=== PATIENT | female | born 1955 | race Caucasian/White ===

== ENCOUNTER → 2016-09-09 | Outpatient (CLI) | payer BC ==
[2016-09-09 13:06] LABS: EKG EKG PERFORMED
[2016-09-09 13:28] LABS: Basophils # (A) 0.1 k/uL (0-0.2); Basophils % (A) 1 %; CH 31.3; CHCM 33.8; Eosinophils # (A) 0.1 k/uL (0-0.7); Eosinophils % (A) 1 %; HCT 39.2 % (34.0-46.0); HDW 2.43; HGB 13.1 gm/dL (11.4-16.0); Luc # (Auto) 0.22; Luc % (Auto) 3; Lymphocytes # (A) 2.2 k/uL (1.0-4.8); Lymphocytes % (A) 27 %; MCH 31.2 pg (25.0-35.0); MCHC 33.6 g/dL (31.0-37.0); Mean Platelet Volume 7.5; Monocytes # (A) 0.6 k/uL (0-1.0); Monocytes % (A) 8 %; Neutrophils # (A) 4.9 k/uL (1.3-7.7); Neutrophils % (A) 61 %; RBC 4.21 m/uL (3.80-5.40); RDW 12.9 % (11.5-15.5); WBC (Perox) 8.05
[2016-09-09 13:33] LABS: Appearance,Urine Clear (Clear); Bilirubin,Urine Negative (Negative); Glucose,Urine (UA) Negative (Negative); Ketones,Urine Negative (Negative); Leukocyte Esterase,Urine Negative (Negative); Nitrite,Urine Negative (Negative); Protein,Urine Negative (Negative); Specific Gravity,Urine 1.015 (1.001-1.035); UA Billing (MACRO vs. MICRO) CHEM; Urobilinogen,Urine <2.0 mg/dL (<2.0)
[2016-09-09 13:44] LABS: ALT 24 U/L (9-52); AST 21 U/L (14-36); Alkaline Phosphatase 92 U/L (38-126); Anion Gap 10 mmol/L; Blood Urea Nitrogen 14 mg/dL (7-17); Calcium 9.5 mg/dL (8.4-10.2); Carbon Dioxide 27 mmol/L (22-30); Chloride 103 mmol/L (98-107); Glucose 93 mg/dL (74-99); Non-African American GFR(MDRD) >60 (>60 ml/min/1.73 sqM); Potassium 4.1 mmol/L (3.5-5.1); Sodium 140 mmol/L (137-145); Total Bilirubin 0.6 mg/dL (0.2-1.3); Total Protein 7.2 g/dL (6.3-8.2)
[2016-09-09 13:56] LABS: INR 1.1 (<1.1); Partial Thromboplastin Time 22.4 sec (22.0-30.0); Prothrombin Time 10.8 sec (9.0-12.0)
== END ==
LOC: LABPAT 12:46
PROVIDERS: ATTEND Orthopaedic Surgery
DX: Z01.812 Encounter for preprocedural laboratory examination (principal); Z51.81 Encounter for therapeutic drug level monitoring; Z79.01 Long term (current) use of anticoagulants
CPT/HCPCS: 80053; 81003; 85025; 85610; 85730; 87070; 93005

== ENCOUNTER 2016-09-23 07:30 | Inpatient (IN) | payer BC ==
[2016-09-10 16:05] VITALS: BMI 37.4
[~2016-09-23 07:30] MED LIST: ACETAMINOPHEN TAB 500 MG TAB PO ONE; CLINDAMYCIN 900 MG in DEXTROSE 5% IN WATER 50 ML IVPB ONE; DEXAMETHASONE SOD PHOSPHATE 10 MG/ML 1 ML VIAL IV ONE; HYDROmorphone 1 MG/ML 1 ML SYRINGE IVP PRN; LACTATED RINGERS 1,000 ML IV SCH; MELOXICAM 7.5 MG TAB PO ONE; MIDAZOLAM 2 MG/2 ML VIAL IV PRN; ONDANSETRON 4 MG/2 ML VIAL IVP ONE; TRANEXAMIC ACID 1,000 MG in SODIUM CHLORIDE 0.9% 100 ML IVPB ONE
[2016-09-23] MEDS ORDERED: ROPIVACAINE 246.25 MG, EPINEPHrine 0.5 MG, KETOROLAC 30 MG, cloNIDine HCL/PF 80 MCG, WA... MISCELLANE ONE ×5 (09:01)
[2016-09-23] MEDS ORDERED: LIDOCAINE 1% 20 ML VIAL (10MG/ML) FOR IV START INTRADERMA ONE (12:55)
[2016-09-23] MEDS ORDERED: ROCURONIUM BROMIDE 10 MG/ML 10 ML VIAL IV ONE (14:07)
[2016-09-23] MEDS ORDERED: fentaNYL (PF) 50 MCG/ML 2 ML AMP ONE (14:07)
[2016-09-23] MEDS ORDERED: SODIUM CHLORIDE 0.9% 100 ML BAG ONE (14:07)
[2016-09-23] MEDS ORDERED: TRANEXAMIC ACID 1,000 MG/10 ML VIAL ONE (14:07)
[2016-09-23] MEDS ORDERED: MIDAZOLAM 2 MG/2 ML VIAL ONE (14:07)
[2016-09-23] MEDS ORDERED: PROPOFOL 10 MG/ML 20 ML VIAL IV ONE (14:07)
[2016-09-23] MEDS ORDERED: ceFAZolin 3,000 MG in SODIUM CHLORIDE 0.9% IRRIGATIO 3,000 ML IRRIGATION ONE (14:07)
[2016-09-23] MEDS ORDERED: HYDROmorphone (PF) 1 MG/ML ONE (14:07)
[2016-09-23] MEDS ORDERED: GLYCOPYRROLATE 0.2 MG/ML 2 ML VIAL ONE (14:07)
[2016-09-23] MEDS ORDERED: NEOSTIGMINE 1 MG/ML 10 ML VIAL ONE (14:07)
[2016-09-23] MEDS ORDERED: LIDOCAINE 1% INJ 10MG/ML (20 ML MDV) ONE (14:07)
[2016-09-23] MEDS ORDERED: ROPIVACAINE 1,100 MG, SODIUM CHLORIDE 0.9% 330 ML MISCELLANE PRN ×2 (15:18)
--- NOTE | 2016-09-23 15:21 | P.ONQ ---
Anesthesiology Proc Note - PNB - Peripheral Nerve Block Performed Right Adductor Canal Infusion Time Out Performed: Yes Indication: Acute Post-Operative Pain, Requested by physician Sedation Type: Awake Preparation: Sterile Dressing Position: Supine Needle Types: Other (see comment) (pajunk needle) Needle Size: 100mm (4") Needle Gauge: 21 Technique: Ultrasound Injectate: 0.5% Ropivacaine (see comment for volume) (ropi.5%) Blood Aspirated: No Pain Paresthesia on Injection Noted: No Resistance on Injection: Normal Events: Uneventful and Well Tolerated
[2016-09-23] MEDS ORDERED: LACTATED RINGERS 1,000 ML IV ONE (15:29)
--- NOTE | 2016-09-23 15:30 | P.OP ---
Date of Procedure: 09/23/16 Preoperative Diagnosis: Severe osteoarthritis right knee Postoperative Diagnosis: Severe osteoarthritis right knee Procedure(s) Performed: Right total knee arthroplasty Implants: Mckinley and Nephew Oxinium femoral component size 5, right Mckinley & Nephew Mili II right nonporous tibial baseplate size 4 Mckinley [employer] Nephew size 13 mm Legion XLPE dished articular insert, size 3-4 Mckinley [employer] Nephew Mili II resurfacing patellar component, 32 mm All components were cemented using Rebekah bone cement.. The articulation is ceramic on polyethylene. Anesthesia: spinal Surgeon: Rogelio Hughes Associate Professor Of Law #1: Brisa Duran Estimated Blood Loss (ml): 50 Pathology: other (Bone and cartilage) Condition: stable Disposition: PACU Indications for Procedure: After failure of conservative treatment we discussed the surgical and nonsurgical treatment options at length. Patient wishes to proceed with a total knee arthroplasty. Complications specific to this procedure were discussed at length, including but not limited to infection, bleeding, stiffness , and nerve injury. Patient is aware of all these complications and informed consent was obtained Operative Findings: The operative findings are consistent with severe osteoarthritis of the right knee Description of Procedure: Patient was seen in the preoperative area consent was reviewed and operative site was marked with a skin marker. An adductor canal pain catheter was placed by anesthesia in the preoperative area. Patient was then brought to the operating room and given preoperative antibiotics intravenously. A spinal anesthetic was administered by the anesthesia department. A Shirley catheter was then placed by the nursing staff. A tourniquet was placed on the upper thigh and the lower extremity was prepped and draped in usual sterile fashion. A gram of transexamic acid was given. A universal timeout was then performed which confirmed the patient's name, surgical site, ALLERGIES, and consent. The lower extremity was then exsanguinated and tourniquet was inflated to 250 mmHg. A standard and anterior midline approach to the knee was performed. The skin and subcutaneous tissue was dissected down to the patellar tendon. A medial parapatellar arthrotomy was then performed. The knee was then extended, the patellar was everted, and the knee was again flexed. Anterior horns of both menisci were excised, and a release was performed to the posterior medial aspect of the knee. On gross visual inspection, there was complete loss of articular cartilage in the medial and patellofemoral joint spaces. There was also significant cartilage damage in the lateral compartment. There were multiple periarticular osteophytes which were then removed with a Ronguer. The femoral canal was then opened with the appropriate drill, and the intramedullary femoral cutting guide was then placed and set for 4 of valgus. The distal femoral cutting block was then pinned in place, and the distal femur was then cut. The cutting block was then removed and the cut was checked for flatness. Next, the sizing guide was then placed and set for 3 external rotation based off of the epicondylar axis and Whitesides line. After the femur was sized, the appropriate 4-in-1 cutting block was then pinned in place. The anterior condyles were cut without notching. The posterior and chamfer cuts were performed while protecting the collateral ligaments. The cutting block was then removed, and the femoral canal was plugged with autologous bone. Attention was then directed to the tibia. The remaining ACL was removed with a Ronguer, and the tibia was then gently subluxed forward with a large bent knee retractor. Any remaining menisci was excised. The posterior lateral corner was cauterized in order to cauterize the lateral geniculate artery. The extra medullary tibial cutting guide was then placed, set for the appropriate rotation , slope, and depth of resection. The proximal tibia cutting guide was then pinned in place. Proximal tibia was then cut and sized. Next trials were then placed with the appropriate-sized insert. The knee was able to fully extend and flex to 130 and was stable throughout all range of motion. The knee was then extended, patella everted. Patella was then measured, and then using an osteotomy guide, the patella was cut at the appropriate level. The patella was then measured and drilled and the patella trial was then placed. The knee was then taken through range of motion with the patella trial and the patella tracked normally. The knee was then extended patella trial was then removed and the patella was everted. Knee was then flexed and lug holes were drilled through the femoral trial and the femoral trial was then removed. The tibial was then exposed, and the tibial broach guide was then pinned in place after it was set for the appropriate rotation to allow for the most coverage without overhang. The tibia was then reamed and broached. The cut surfaces of bone were then irrigated with pulsatile lavage. The posterior structures were injected with the ropivacaine solution. The knee was also irrigated with Irrisept solution. The components were then opened, the cement was mixed, and the components were then cemented in place. The cement was allowed to harden with the knee in full extension. While the cement was hardening, the remaining soft tissues were then injected with a ropivacaine solution, which consisted of 246.25 mg of ropivacaine, 0.5 mg of epinephrine, 30 mg of Toradol, 80 g of clonidine, and 48.45 mL of sterile water, for a total of 100 mL of fluid injected. After the cemented hardened. The tourniquet was released, and hemostasis was obtained. A second gram of transexamic acid was given. The knee was again irrigated. The knee was again taken through range of motion and found to be stable throughout all range of motion of 0-130 , and the patella tracked normally. The fascia was then closed with #2 strata fix suture. The subcutaneous tissue was closed with 3-0 Vicryl and 3-0 strata fix. Dermabond tape was used for the skin and placed with the knee in flexion. The patient was placed in a sterile dressing. Patient was then transferred to recovery room in stable condition. The clinical assistant professor ANJUM Zee was required due the complexity surgery and the need for a skilled operating room surgical technician. She assisted in positioning, draping , retraction, and closure of the wound.
[2016-09-23] MEDS ORDERED: NALOXONE 0.4 MG/ML 1 ML VIAL IV PRN (15:51)
[2016-09-23] MEDS ORDERED: MAGNESIUM HYDROXIDE 2,400 MG/10 ML CUP PO PRN (15:51)
[2016-09-23] MEDS ORDERED: BISACODYL 10 MG SUPP RECTAL PRN (15:51)
[2016-09-23] MEDS ORDERED: DIAZEPAM 5 MG TAB PO PRN ×2 (15:51)
[2016-09-23] MEDS ORDERED: HYDROmorphone 1 MG/ML 1 ML SYRINGE IVP PRN ×2 (15:51)
[2016-09-23] MEDS ORDERED: HYDROcodone/APAP 5-325MG 1 EACH TAB PO PRN (15:51)
--- NOTE | 2016-09-23 16:21 | XR ---
EXAMINATION TYPE: XR knee limited RT DATE OF EXAM: 09/23/2016 4:16 PM COMPARISON: NONE HISTORY: Post knee replacement TECHNIQUE: 2 view right knee FINDINGS: Tibial and femoral components have been placed. Postsurgical changes are present. No acute fractures are evident. IMPRESSION: 1. No fracture post knee replacement
[2016-09-23] MEDS: ONDANSETRON 4 MG/2 ML VIAL IVP PRN (18:32)
[2016-09-23] MEDS: CLINDAMYCIN 900 MG in DEXTROSE 5% IN WATER 50 ML IVPB SCH ×2 (20:03)
[2016-09-23] MEDS: SODIUM CHLORIDE 0.9% 1,000 ML IV SCH (20:04)
[2016-09-23] MEDS: SENNOSIDES-DOCUSATE SODIUM 1 EACH TAB PO SCH (21:49)
[2016-09-23] MEDS: ASPIRIN 325 MG TAB PO SCH (21:49)
[2016-09-23] MEDS: HYDROcodone/APAP 5-325MG 1 EACH TAB PO PRN (21:52)
[2016-09-24] MEDS: CLINDAMYCIN 900 MG in DEXTROSE 5% IN WATER 50 ML IVPB SCH ×2 (01:08)
[2016-09-24] MEDS: SODIUM CHLORIDE 0.9% 1,000 ML IV SCH ×2 (03:59→05:00)
[2016-09-24] MEDS: HYDROcodone/APAP 5-325MG 1 EACH TAB PO PRN ×3 (05:02→22:15)
[2016-09-24 07:33] LABS: Basophils % (A) 0 %; CH 31.1; CHCM 32.6; Eosinophils % (A) 0 %; HCT 34.1 % (34.0-46.0); HDW 2.35; HGB 10.9 gm/dL (11.4-16.0); Luc # (Auto) 0.23; Luc % (Auto) 2; Lymphocytes % (A) 8 %; MCH 30.7 pg (25.0-35.0); MCV 95.9 fL (80.0-100.0); Mean Platelet Volume 7.3; Monocytes # (A) 0.8 k/uL (0-1.0); Monocytes % (A) 7 %; Neutrophils % (A) 83 %; RBC 3.56 m/uL (3.80-5.40); RDW 12.9 % (11.5-15.5); WBC 12.1 k/uL (3.8-10.6)
--- NOTE | 2016-09-24 08:15 | P.PN ---
Subjective Principal diagnosis: Status post right total knee arthroplasty This is a pleasant 61-year-old female who is status post right total knee arthroplasty. The patient is seen and evaluated at bedside with Dr. Rogelio Hughes. Today's postoperative day #1. The patient has not yet been up with physical therapy. Her pain is under fair control. She has no other complaints at this time. Objective - Vital Signs Vital signs: Vital Signs Temp 97.7 F 09/24/16 06:02 Pulse 56 L 09/24/16 06:02 Resp 16 09/24/16 00:15 BP 99/58 09/24/16 06:02 Pulse Ox 98 09/24/16 06:02 Intake & Output 09/23/16 09/24/16 09/24/16 18:59 06:59 18:59 Intake Total 1457 1000 Output Total 100 700 Balance 1357 1000 -700 Intake: IV 1457 1000 Clindamycin 900 mg In 100 Dextrose 5% in Water 50 ml @ 100 mls/hr IVPB Q6H [facility] Rx#:[id number] Sodium Chloride 0.9% 1, 900 000 ml @ 100 mls/hr IV . Q10H [facility] Rx#:[id number] Output: Urine 75 700 Uretheral (Shirley) 700 Estimated Blood Loss 25 - Exam The patient does not appear in acute distress. Alert and orientated 3. Dressing is clean dry and intact. Incision appears fine with no erythema or active drainage. Calf is soft and nontender. Good foot and ankle motion without difficulty. Sensation and circulatory status is intact. - Labs CBC & Chem 7: 09/24/16 07:11 Labs: Abnormal Lab Results - Last 24 Hours (Table) 09/24/16 Range/Units 07:11 WBC 12.1 H (3.8-10.6) k/uL RBC 3.56 L (3.80-5.40) m/uL Hgb 10.9 L (11.4-16.0) gm/dL Neutrophils # 10.0 H (1.3-7.7) k/uL Assessment and Plan (1) Primary osteoarthritis of right knee Status: Acute (2) Status post right knee replacement Status: Acute Plan: 1. Continue with routine postoperative care. 2. Anticoagulation with aspirin. 3. Physical therapy and CPM today. 4. Appreciate input from medicine. 5. Anticipate discharge to rehab likely on Thursday
[2016-09-24] MEDS: ASPIRIN 325 MG TAB PO SCH ×2 (08:50→22:00)
[2016-09-24] MEDS ORDERED: LORATADINE 10 MG TAB PO SCH (09:00)
[2016-09-24] MEDS ORDERED: LOSARTAN-HCTZ 50-12.5 MG 1 EACH TAB PO SCH (09:00)
--- NOTE | 2016-09-24 13:30 | XR ---
EXAMINATION TYPE: XR chest 2V DATE OF EXAM: 09/24/2016 1:15 PM COMPARISON: NONE HISTORY: Extended care facility placement. TECHNIQUE: Frontal and lateral views of the chest are obtained. FINDINGS: There is no focal air space opacity, pleural effusion, or pneumothorax seen. The cardiac silhouette size is within normal limits. The osseous structures are intact. IMPRESSION: No acute cardiopulmonary process.
--- NOTE | 2016-09-24 15:12 | P.CONS ---
History of Present Illness - Reason for Consult Consult date: 09/24/16 medical management - History of Present Illness this is a 61-year-old female patient of Dr. Osvaldo lord always with a past medical history for right-sided breast cancer status post right mastectomy , implant with ALLERGIC reaction to the implant subsequently removed, hypertension, osteoarthritis, MRSA in the foot.patient was brought in by Dr. Rogelio Hughes and underwent right total knee arthroplasty yesterday. She has had no postop complications. Chest x-ray shows no acute findings. She is planning for subacute rehab. She is complaining of pain at this time after getting up to wheelchair first chest x-ray. Patient was seen by cardiology prior to her procedure. Review of Systems All systems: negative Constitutional: Denies chills, Denies fever Eyes: denies blurred vision, denies pain Ears, nose, mouth and throat: Denies headache, Denies sore throat Cardiovascular: Denies chest pain, Denies shortness of breath Respiratory: Denies cough Gastrointestinal: Denies abdominal pain, Denies diarrhea, Denies nausea, Denies vomiting Genitourinary: Denies dysuria, Denies hematuria Musculoskeletal: Denies myalgias Musculoskeletal: right: knee pain Integumentary: Denies pruritus, Denies rash Neurological: Denies numbness, Denies weakness Psychiatric: Denies anxiety, Denies depression Endocrine: Denies fatigue, Denies weight change Past Medical History Past Medical History: Cancer, Hypertension, Osteoarthritis (OA) Additional Past Medical History / Comment(s): hx. right-sided breast cancer 2008 History of Any Multi-Drug Resistant Organisms: MRSA Year Discovered:: foot MDRO Source:: 2006 Past Surgical History: Breast Surgery, Hysterectomy, Orthopedic Surgery Additional Past Surgical History / Comment(s): right mastectomy 2009, then implant, left breast reduction, implant removed 2014due to ALLERGIC reaction, bilateral bunionectomy and hammertoe repair, arthroscopy right knee Past Anesthesia/Blood Transfusion Reactions: No Reported Reaction Past Psychological History: No Psychological Hx Reported Smoking Status: Never smoker Past Alcohol Use History: Rare Additional Past Alcohol Use History / Comment(s): she is a lifelong nonsmoker but she did have secondhand smoke exposure with her first . No marijuana or illicit drug use. No alcohol abuse. Past Drug Use History: None Reported - Past Family History Mother Family Medical History: No Reported History Additional Family Medical History / Comment(s): other in her 70s from heart failure with history of COPD. Father Family Medical History: Cancer Additional Family Medical History / Comment(s): father is alive at age 83 with history of CVA at age 23and was smoking 5 packs of cigarettes per day at that time, hypertension. Brother(s) Additional Family Medical History / Comment(s): Patient has 5 brothers and 2 have diabetes mellitus and all have hypertension. Sister(s) Additional Family Medical History / Comment(s): Patient has 3 sisters and all have hypertension. Son(s) Additional Family Medical History / Comment(s): Patient has 2 sons and 1 daughter with no major medical problems. Medications and Allergies Home Medications Medication Instructions Recorded Confirmed Type Cetirizine HCl [Zyrtec] 10 mg PO DAILY 09/10/16 09/23/16 History Losartan-Hctz 50-12.5 mg [Hyzaar 1 tab PO DAILY 09/10/16 09/23/16 History 50-12.5] Allergies Allergy/AdvReac Type Severity Reaction Status Date / Time cephalexin [From Keflex] Allergy Dyspnea Verified 09/10/16 15:53 erythromycin base Allergy Rash/Hives, Verified 09/10/16 15:53 itching ketorolac [From Toradol] Allergy Dyspnea Verified 09/10/16 15:53 silicone AdvReac Itching Verified 09/10/16 15:53 vancomycin AdvReac Itching,aneta Verified 09/10/16 15:53 h Physical Exam Vitals: Vital Signs Temp Pulse Resp BP Pulse Ox 09/24/16 06:02 97.7 F 56 L 99/58 98 09/24/16 00:15 98.2 F 68 16 124/76 96 09/23/16 18:45 67 136/76 09/23/16 18:30 69 119/78 09/23/16 18:15 75 159/82 09/23/16 18:00 75 130/66 09/23/16 17:45 79 138/80 09/23/16 17:30 97.3 F L 73 16 134/78 99 09/23/16 17:15 63 16 145/73 100 09/23/16 17:00 73 16 147/76 100 09/23/16 16:45 73 16 150/80 100 09/23/16 16:30 75 16 140/74 98 09/23/16 16:15 75 16 127/61 98 09/23/16 16:00 85 16 133/65 94 L 09/23/16 15:50 97.0 F L 94 16 146/68 100 Intake and Output 09/23/16 09/24/16 09/24/16 22:59 06:59 14:59 Intake Total 400 1000 500 Output Total 75 1100 Balance 325 1000 -600 Intake: IV 400 1000 Clindamycin 900 mg In 100 Dextrose 5% in Water 50 ml @ 100 mls/hr IVPB Q6H [facility] Rx#:[id number] Sodium Chloride 0.9% 1, 900 000 ml @ 100 mls/hr IV . Q10H [facility] Rx#:[id number] Oral 500 Output: Urine 75 1100 Uretheral (Shirley) 700 Other: # Voids 1 Gen: This is a 61-year-old female. She is sitting up in a chair and appears to be in no acute distress. HEENT: Head is atraumatic, normocephalic. Pupils equal, round. Sclerae is anicteric. NECK: Supple. No JVD. No lymphadenopathy. No thyromegaly. LUNGS: Clear to auscultation. No wheezes or rhonchi. No intercostal retractions. HEART: Regular rate and rhythm. No murmur. ABDOMEN: Soft. Bowel sounds are present. No masses. No tenderness. EXTREMITIES: No pedal edema. No calf tenderness. Dressing in place to the right knee. NEUROLOGICAL: Patient is awake, alert and oriented x3. Cranial nerves 2 through 12 are grossly intact. Results CBC & Chem 7: 09/24/16 07:11 Labs: Abnormal Lab Results - Last 24 Hours (Table) 09/24/16 Range/Units 07:11 WBC 12.1 H (3.8-10.6) k/uL RBC 3.56 L (3.80-5.40) m/uL Hgb 10.9 L (11.4-16.0) gm/dL Neutrophils # 10.0 H (1.3-7.7) k/uL Assessment and Plan Plan: 1. Osteoarthritis status post right total knee arthroplasty. Continue current plan of care by orthopedics. Patient is on full strength aspirin twice daily for DVT prophylaxis. Continue PT. Continue current pain management. 2. Hypertension. Patient's blood pressures have been on the low side. Hyzaar will be resumed with parameters. 3. History of right-sided breast cancer status post mastectomy, stable. 4. DVT prophylaxis. Aspirin. 5. Gastrointestinal prophylaxis. Protonix. Patient will be admitted to the hospital for a minimum of 2 night stay. Discharge plan: Subacute rehab Impression and plan of care have been directed as dictated by the signing physician. Marie Mccarty nurse practitioner acting as scribe for signing physician. Time with Patient: Greater than 30
[2016-09-24] MEDS: HYDROmorphone 1 MG/ML 1 ML SYRINGE IVP PRN (20:34)
[2016-09-24] MEDS: SENNOSIDES-DOCUSATE SODIUM 1 EACH TAB PO SCH (22:00)
[2016-09-24] MEDS: LORATADINE 10 MG TAB PO SCH (22:00)
[2016-09-24] MEDS: LOSARTAN-HCTZ 50-12.5 MG 1 EACH TAB PO SCH (22:00)
[2016-09-25] MEDS: HYDROmorphone 1 MG/ML 1 ML SYRINGE IVP PRN (01:45)
[2016-09-25] MEDS: ONDANSETRON 4 MG/2 ML VIAL IVP PRN ×2 (05:33→17:02)
[2016-09-25] MEDS: HYDROcodone/APAP 5-325MG 1 EACH TAB PO PRN (06:19)
--- NOTE | 2016-09-25 09:08 | P.PN ---
Subjective Principal diagnosis: Primary osteoarthritis right knee Status post total right knee arthroplasty This is a 61-year-old female who is status post total right knee arthroplasty on 09/23/2016. She is complaining of increased right knee pain. She has had some nausea and vomiting throughout the night and this morning. She is not feeling well enough for discharge to rehab today. Objective - Vital Signs Vital signs: Vital Signs Temp 99.8 F H 09/24/16 23:00 Pulse 90 09/24/16 23:00 Resp 16 09/24/16 23:00 BP 136/60 09/24/16 23:00 Pulse Ox 93 L 09/24/16 23:00 Intake & Output 09/24/16 09/25/16 09/25/16 18:59 06:59 18:59 Intake Total 980 790 Output Total 1100 Balance -120 790 Intake: Oral 980 790 Output: Urine 1100 Uretheral (Shirley) 700 Other: Voiding Method Toilet # Voids 1 2 - Exam Is a pleasant 61-year-old female in no acute distress. She is alert and oriented 3. Exam of the right lower extremity reveals that her dressing is clean, dry and intact. There is no bloody drainage on the dressing. She has moderate swelling to the knee and lower leg. There is no calf pain with palpation. Homans is negative. She has full foot ankle motion without difficulty or pain. Neurovascular status to the right lower extremity is intact. - Labs CBC & Chem 7: 09/24/16 07:11 Assessment and Plan (1) Primary osteoarthritis of right knee Status: Acute (2) Status post right knee replacement Status: Acute Plan: The clinical findings are discussed the patient. We'll need to get her nausea and vomiting under control before discharge to rehab. Hopefully we can get her feeling better today and plan for discharge tomorrow. Continue current care.
[2016-09-25] MEDS ORDERED: HYDROcodone/APAP 7.5-325MG 1 EACH TAB PO PRN (09:37)
[2016-09-25] MEDS: HYDROcodone/APAP 7.5-325MG 1 EACH TAB PO PRN ×4 (09:45→21:47)
[2016-09-25] MEDS: hydrOXYzine PAMOATE 25 MG CAP PO PRN ×4 (09:46→21:46)
[2016-09-25] MEDS: SODIUM CHLORIDE 0.9% 1,000 ML IV SCH ×3 (09:46→16:20)
[2016-09-25] MEDS: ASPIRIN 325 MG TAB PO SCH ×2 (09:47→21:46)
[2016-09-25 12:32] LABS: ALT 29 U/L (9-52); AST 17 U/L (14-36); Alkaline Phosphatase 70 U/L (38-126); Anion Gap 7 mmol/L; Blood Urea Nitrogen 14 mg/dL (7-17); Calcium 8.5 mg/dL (8.4-10.2); Carbon Dioxide 24 mmol/L (22-30); Chloride 108 mmol/L (98-107); Glucose 98 mg/dL (74-99); Non-African American GFR(MDRD) >60 (>60 ml/min/1.73 sqM); Potassium 3.8 mmol/L (3.5-5.1); Sodium 139 mmol/L (137-145); Total Bilirubin 0.4 mg/dL (0.2-1.3); Total Protein 5.7 g/dL (6.3-8.2)
--- NOTE | 2016-09-25 14:54 | P.PN ---
Subjective This is a 61-year-old female patient of Dr. Osvaldo Bledsoe with a past medical history for right-sided breast cancer status post right mastectomy , implant with ALLERGIC reaction to the implant subsequently removed, hypertension, osteoarthritis, MRSA in the foot.patient was brought in by Dr. Rogelio Hughes and underwent right total knee arthroplasty yesterday. She has had no postop complications. Chest x-ray shows no acute findings. She is planning for subacute rehab. She is complaining of pain at this time after getting up to wheelchair first chest x-ray. Patient was seen by cardiology prior to her procedure. 09/25: Patient has had problems with nausea which is better at this time. She was given Zofran. Nausea possibly due to pain medications. She has not had a bowel movement. Anticipate discharge to rehab tomorrow. Objective - Vital Signs Vital signs: Vital Signs Temp 99.8 F H 09/24/16 23:00 Pulse 90 09/24/16 23:00 Resp 16 09/24/16 23:00 BP 136/60 09/24/16 23:00 Pulse Ox 93 L 09/24/16 23:00 Intake & Output 09/24/16 09/25/16 09/25/16 18:59 06:59 18:59 Intake Total 980 790 Output Total 1100 Balance -120 790 Intake: Oral 980 790 Output: Urine 1100 Uretheral (Shirley) 700 Other: Voiding Method Toilet # Voids 1 2 - Exam Gen: This is a 61-year-old female. She is sitting up in a chair and appears to be in no acute distress. HEENT: Head is atraumatic, normocephalic. Pupils equal, round. Sclerae is anicteric. NECK: Supple. No JVD. No lymphadenopathy. No thyromegaly. LUNGS: Clear to auscultation. No wheezes or rhonchi. No intercostal retractions. HEART: Regular rate and rhythm. No murmur. ABDOMEN: Soft. Bowel sounds are present. No masses. No tenderness. EXTREMITIES: No pedal edema. No calf tenderness. Dressing in place to the right knee. NEUROLOGICAL: Patient is awake, alert and oriented x3. Cranial nerves 2 through 12 are grossly intact. - Labs CBC & Chem 7: 09/24/16 07:11 09/25/16 11:58 Assessment and Plan Plan: 1. Osteoarthritis status post right total knee arthroplasty. Continue current plan of care by orthopedics. Patient is on full strength aspirin twice daily for DVT prophylaxis. Continue PT. Continue current pain management. 2. Hypertension. Patient's blood pressures have been on the low side. Hyzaar will be resumed with parameters. 3. History of right-sided breast cancer status post mastectomy, stable. 4. DVT prophylaxis. Aspirin. 5. Gastrointestinal prophylaxis. Protonix. 6. Postop nausea. Continue Zofran. Most likely due to pain medications. Discharge plan: Subacute rehab Impression and plan of care have been directed as dictated by the signing physician. Marie Mccarty nurse practitioner acting as scribe for signing physician. Time with Patient: Greater than 30
[2016-09-25 15:48] VITALS: RESP 16
[2016-09-25] MEDS: LOSARTAN-HCTZ 50-12.5 MG 1 EACH TAB PO SCH (21:46)
[2016-09-25] MEDS: SENNOSIDES-DOCUSATE SODIUM 1 EACH TAB PO SCH (21:46)
[2016-09-25] MEDS: LORATADINE 10 MG TAB PO SCH (21:46)
[2016-09-26] MEDS: HYDROcodone/APAP 7.5-325MG 1 EACH TAB PO PRN ×4 (02:13→14:57)
[2016-09-26] MEDS: hydrOXYzine PAMOATE 25 MG CAP PO PRN ×4 (02:15→14:57)
[2016-09-26] MEDS: SODIUM CHLORIDE 0.9% 1,000 ML IV SCH ×2 (03:12→14:59)
[2016-09-26] MEDS: ONDANSETRON 4 MG/2 ML VIAL IVP PRN (07:03)
[2016-09-26 07:28] LABS: Basophils % (A) 1 %; CHCM 33.4; Eosinophils # (A) 0.1 k/uL (0-0.7); Eosinophils % (A) 2 %; HCT 32.2 % (34.0-46.0); HDW 2.37; HGB 10.5 gm/dL (11.4-16.0); Luc # (Auto) 0.22; Luc % (Auto) 3; Lymphocytes # (A) 1.8 k/uL (1.0-4.8); Lymphocytes % (A) 24 %; MCH 30.6 pg (25.0-35.0); MCHC 32.8 g/dL (31.0-37.0); MCV 93.3 fL (80.0-100.0); Mean Platelet Volume 6.7; Monocytes # (A) 0.6 k/uL (0-1.0); Monocytes % (A) 8 %; Neutrophils # (A) 4.8 k/uL (1.3-7.7); Neutrophils % (A) 63 %; RBC 3.45 m/uL (3.80-5.40); RDW 12.9 % (11.5-15.5); WBC 7.6 k/uL (3.8-10.6)
[2016-09-26 07:55] VITALS: TEMP 97.8
[2016-09-26] MEDS: ASPIRIN 325 MG TAB PO SCH (08:15)
--- NOTE | 2016-09-26 09:08 | P.PN ---
Subjective Principal diagnosis: Status post right total knee arthroplasty This is a pleasant 61-year-old female who is status post right total knee arthroplasty. The patient is seen and evaluated at bedside. Today's postoperative day #2. Her pain is under fair control. She dates that her nausea is better today. She denies abdominal pain. She states that she does feel winded when up walking. Objective - Vital Signs Vital signs: Vital Signs Temp 97.8 F 09/26/16 07:00 Pulse 91 09/26/16 07:00 Resp 16 09/26/16 07:00 BP 105/67 09/26/16 07:00 Pulse Ox 94 L 09/26/16 07:00 Intake & Output 09/25/16 09/26/16 09/26/16 18:59 06:59 18:59 Intake Total 700 100 Balance 700 100 Weight 105.233 kg Intake: Oral 700 100 Other: Voiding Method Toilet Toilet # Voids 1 - Exam The patient does not appear in acute distress. Alert and orientated 3. Dressing is clean dry and intact. Incision appears fine with no erythema or active drainage. Calf is soft and nontender. Good foot and ankle motion without difficulty. Sensation and circulatory status is intact. - Labs CBC & Chem 7: 09/26/16 06:46 09/25/16 11:58 Labs: Abnormal Lab Results - Last 24 Hours (Table) 09/25/16 09/26/16 Range/Units 11:58 06:46 RBC 3.45 L (3.80-5.40) m/uL Hgb 10.5 L (11.4-16.0) gm/dL Hct 32.2 L (34.0-46.0) % Chloride 108 H (98-107) mmol/L Total Protein 5.7 L (6.3-8.2) g/dL Albumin 3.0 L (3.5-5.0) g/dL Assessment and Plan (1) Primary osteoarthritis of right knee Status: Acute (2) Status post right knee replacement Status: Acute Plan: 1. Continue with routine postoperative care. 2. Anticoagulation with aspirin. 3. Physical therapy and CPM today. 4. Appreciate input from medicine. 5. Possible transfer to rehab today depending up medical clearance.
[2016-09-26] MEDS ORDERED: FUROSEMIDE 10 MG/ML 10 ML VIAL IV STA (09:16)
[2016-09-26 15:18] VITALS: BP 120/65
--- NOTE | 2016-09-26 15:47 | P.DS ---
Providers Date of admission: 09/23/16 11:52 Expected date of discharge: 09/26/16 Attending physician: Rogelio Hughes Consults: 09/23/16 15:51 Consult Physician Routine Consulting Provider: Osvaldo Bledsoe Consult Reason/Comments: medical management Do you want consulting provider notified?: Yes 09/23/16 18:29 Consult Physician Routine Consulting Provider: Naveed Oviedo Consult Reason/Comments: medical magagement Do you want consulting provider notified?: Yes Primary care physician: Osvaldo Bledsoe - Discharge Diagnosis(es) (1) Primary osteoarthritis of right knee Current Visit: Yes Status: Acute (2) Status post right knee replacement Current Visit: Yes Status: Acute Hospital Course: This is a pleasant 61-year-old female last seen in our office with complaints of right knee pain. Patient has known history of degenerative arthritis of the right knee and presented to discuss options. After discussion and consideration , patient elected to proceed with a total knee arthroplasty of the right knee. The patient was seen preoperatively and medically cleared for surgery by her primary care physician. The patient was admitted to [facility] and underwent right total knee arthroplasty with Dr. Rogelio Hughes. The procedure was performed without complications or sequelae. The patient has done well postoperatively. The patient was seen and evaluated at bedside today. Pain is reasonably controlled. Dressing is clean dry and intact. Incision looks fine with no erythema or active drainage. Calf is soft and nontender. The patient has full foot and ankle motion without difficulty. Patient's right lower extremity is neurovascular intact. Oxygen saturation was low earlier and medicine has evaluated and recommended possible sleep study. Pulmonary has been consulted. Patient is orthopedically stable for transfer when medically cleared. Pertinent Studies: Laboratory Tests 09/26/16 06:46 WBC 7.6 RBC 3.45 L Hgb 10.5 L Hct 32.2 L Patient Condition at Discharge: Good Plan - Discharge Summary New Discharge Prescriptions: Aspirin 325 mg PO BID #60 tab HYDROcodone/APAP 7.5-325MG [Guild 7.5-325] 1 each PO Q4H PRN #90 tab PRN Reason: Pain Scale 1 To 5 Sennosides-Docusate Sodium [Senokot-S] 2 tab PO DAILY #60 tablet Discharge Medication List Cetirizine HCl [Zyrtec] 10 mg PO DAILY 09/10/16 [History] Losartan-Hctz 50-12.5 mg [Hyzaar 50-12.5] 1 tab PO DAILY 09/10/16 [History] Aspirin 325 mg PO BID #60 tab 09/26/16 [Rx] HYDROcodone/APAP 7.5-325MG [Guild 7.5-325] 1 each PO Q4H PRN #90 tab 09/26/16 [ Rx] Sennosides-Docusate Sodium [Senokot-S] 2 tab PO DAILY #60 tablet 09/26/16 [Rx] Follow up Appointment(s)/Referral(s): [facility] on [facility], [NON-STAFF] - 1 Week Yelitza Gray MD [STAFF PHYSICIAN] - 10/14/16 4:00 pm Rogelio Hughes DO [Doctor of Osteopathic Medicine] - 10/10/16 9:25 am Osvaldo Bledsoe MD [Primary Care Provider] - 1 Week (one week after discharge from [facility]) Oni Min MD [STAFF PHYSICIAN] - 2 Weeks (plan for OP sleep study) Ambulatory/Diagnostic Orders: Continuous Passive Motion (CPM) Machine [DME.AMB1] Location: Determined By Patient Activity/Diet/Wound Care/Special Instructions: Weightbearing as tolerated with a walker CPM daily Daily dressing changes, keep incision clean and dry [facility] with questions or concerns [phone] Discharge Disposition: TRANSFER TO SNF/ECF
--- NOTE | 2016-09-26 16:15 | P.PN ---
Subjective This is a 61-year-old female patient of Dr. Osvaldo Bledsoe with a past medical history for right-sided breast cancer status post right mastectomy , implant with ALLERGIC reaction to the implant subsequently removed, hypertension, osteoarthritis, MRSA in the foot.patient was brought in by Dr. Rogelio Hughes and underwent right total knee arthroplasty yesterday. She has had no postop complications. Chest x-ray shows no acute findings. She is planning for subacute rehab. She is complaining of pain at this time after getting up to wheelchair first chest x-ray. Patient was seen by cardiology prior to her procedure. 09/25: Patient has had problems with nausea which is better at this time. She was given Zofran. Nausea possibly due to pain medications. She has not had a bowel movement. Anticipate discharge to rehab tomorrow. 09/26: Patient required being placed on O2 yesterday at 2 L. Today when she's ambulated without oxygen and her pulse ox drops to 79%. Patient appears to hold her breath at times. She does admit to snoring and she wakes up suddenly when she is sleeping. Blood pressure is on the lower side from the last 2 days but repeats are improved. Lasix 60 mg IV push given. Consult with Dr. Min requested. chest x-ray done yesterday for ECF placement showed no acute process. She has been cleared for discharge by orthopedics. Patient will be cleared for discharge today to [facility] once seen by Dr. Min. Objective - Vital Signs Vital signs: Vital Signs Temp 97.8 F 09/26/16 07:00 Pulse 82 09/26/16 08:00 Resp 16 09/26/16 08:00 BP 105/67 09/26/16 07:00 Pulse Ox 94 L 09/26/16 07:00 Intake & Output 09/25/16 09/26/16 09/26/16 18:59 06:59 18:59 Intake Total 700 100 Balance 700 100 Weight 105.233 kg Intake: Oral 700 100 Other: Voiding Method Toilet Toilet Toilet # Voids 1 - Exam Gen: This is a 61-year-old female. She is sitting up in a chair and appears to be in no acute distress. HEENT: Head is atraumatic, normocephalic. Pupils equal, round. Sclerae is anicteric. NECK: Supple. No JVD. No lymphadenopathy. No thyromegaly. LUNGS: Clear to auscultation. No wheezes or rhonchi. No intercostal retractions. HEART: Regular rate and rhythm. No murmur. ABDOMEN: Soft. Bowel sounds are present. No masses. No tenderness. EXTREMITIES: No pedal edema. No calf tenderness. Dressing in place to the right knee. NEUROLOGICAL: Patient is awake, alert and oriented x3. Cranial nerves 2 through 12 are grossly intact. - Labs CBC & Chem 7: 09/26/16 06:46 09/25/16 11:58 Labs: Abnormal Lab Results - Last 24 Hours (Table) 09/25/16 09/26/16 Range/Units 11:58 06:46 RBC 3.45 L (3.80-5.40) m/uL Hgb 10.5 L (11.4-16.0) gm/dL Hct 32.2 L (34.0-46.0) % Chloride 108 H (98-107) mmol/L Total Protein 5.7 L (6.3-8.2) g/dL Albumin 3.0 L (3.5-5.0) g/dL Assessment and Plan Plan: 1. Osteoarthritis status post right total knee arthroplasty. Continue current plan of care by orthopedics. Patient is on full strength aspirin twice daily for DVT prophylaxis. Continue PT. Continue current pain management. 2. Hypertension. Patient's blood pressures have been on the low side. Hyzaar will be resumed with parameters. 3. History of right-sided breast cancer status post mastectomy, stable. 4. DVT prophylaxis. Aspirin. 5. Gastrointestinal prophylaxis. Protonix. 6. Postop nausea. Continue Zofran. Most likely due to pain medications. 7. Hypoxemia most likely due to obstructive sleep apnea. Patient to follow-up as an outpatient for sleep study. Discharge plan: [facility] Impression and plan of care have been directed as dictated by the signing physician. Marie Mccarty nurse practitioner acting as scribe for signing physician. Time with Patient: Greater than 30
[2016-09-26 16:25] VITALS: PULSE 82
--- NOTE | 2016-09-26 16:57 | P.CNPUL ---
History of Present Illness Consult date: 09/26/16 Reason for consult: hypoxemia History of present illness: 61-year-old female patient, obese, underwent a right knee arthroplasty for severe osteoarthritis of the right knee and chronic pain. The procedure was done on 09/23/2016. The patient is the process of being discharged home today. I was asked to evaluate this patient and comment on the episodes of hypoxemia that she encountered postop. The patient currently is resting comfortably in bed. She has no chest pain. No cough or sputum production. No chest that is no wheezing. No history of any DVT or pulmonary embolism. The patient was taken off oxygen and her pulse ox is around 92-95%. She is able to move around with the help of a walker. No history of bronchial asthma. No significant emphysema. She is a lifetime nonsmoker. She hasn't been aggressively using the incentive spirometer. She is obese and she has some features of obstructive sleep apnea including snoring and chronic hypersomnia and sleepiness during the day. Nevertheless, the possibility of obstructive sleep apnea was entertained yet it was never pursued by a screening polysomnogram. Her pain is under good control. The patient be discharged to [facility] for further rehabilitation. The chest x-ray from 09/24/2016 was essentially within normal limits without any focal airspace disease pneumonias or atelectasis. I noted that postop the patient was at one point placed on a simple mask and high flow oxygen at 8 L per minute nasal cannula and her oxidation progressively improved to the point where the patient is currently on room air. Review of Systems for review of system was done and the positive findings are almost above history of present illness. The patient is a lifetime nonsmoker. No 68 chronic lung disease. No cardiac disease. Hemodynamically stable. No tachycardia. No hypotension Past Medical History Past Medical History: Cancer, Hypertension, Osteoarthritis (OA) Additional Past Medical History / Comment(s): hx. right-sided breast cancer 2008 History of Any Multi-Drug Resistant Organisms: MRSA Date of last positivie culture/infection: foot MDRO Source:: 2006 Past Surgical History: Breast Surgery, Hysterectomy, Orthopedic Surgery Additional Past Surgical History / Comment(s): right mastectomy 2009, then implant, left breast reduction, implant removed 2014due to ALLERGIC reaction, bilateral bunionectomy and hammertoe repair, arthroscopy right knee Past Anesthesia/Blood Transfusion Reactions: No Reported Reaction Past Psychological History: No Psychological Hx Reported Smoking Status: Never smoker Past Alcohol Use History: Rare Additional Past Alcohol Use History / Comment(s): she is a lifelong nonsmoker but she did have secondhand smoke exposure with her first . No marijuana or illicit drug use. No alcohol abuse. Past Drug Use History: None Reported - Past Family History Mother Family Medical History: No Reported History Additional Family Medical History / Comment(s): other in her 70s from heart failure with history of COPD. Father Family Medical History: Cancer Additional Family Medical History / Comment(s): father is alive at age 83 with history of CVA at age 25and was smoking 5 packs of cigarettes per day at that time, hypertension. Brother(s) Additional Family Medical History / Comment(s): Patient has 5 brothers and 2 have diabetes mellitus and all have hypertension. Sister(s) Additional Family Medical History / Comment(s): Patient has 3 sisters and all have hypertension. Son(s) Additional Family Medical History / Comment(s): Patient has 2 sons and 1 daughter with no major medical problems. Medications and Allergies Home Medications Medication Instructions Recorded Confirmed Type Cetirizine HCl [Zyrtec] 10 mg PO DAILY 09/10/16 09/23/16 History Losartan-Hctz 50-12.5 mg [Hyzaar 1 tab PO DAILY 09/10/16 09/23/16 History 50-12.5] Allergies Allergy/AdvReac Type Severity Reaction Status Date / Time cephalexin [From Keflex] Allergy Dyspnea Verified 09/10/16 15:53 erythromycin base Allergy Rash/Hives, Verified 09/10/16 15:53 itching ketorolac [From Toradol] Allergy Dyspnea Verified 09/10/16 15:53 silicone AdvReac Itching Verified 09/10/16 15:53 vancomycin AdvReac Itching,aneta Verified 09/10/16 15:53 h Physical Exam Vitals: Vital Signs Temp Pulse Pulse Resp BP Pulse Ox 09/26/16 16:00 82 90 16 09/26/16 15:18 120/65 09/26/16 14:35 97.8 F 90 16 96/57 92 L 09/26/16 13:48 16 95 09/26/16 08:00 82 91 16 09/26/16 07:00 97.8 F 91 16 105/67 94 L 09/26/16 00:50 98.7 F 102 H 16 108/57 92 L 09/25/16 20:00 96.4 F L 93 16 136/71 94 L Intake and Output 09/26/16 09/26/16 09/26/16 06:59 14:59 22:59 Intake Total 100 Balance 100 Intake: Oral 100 Other: Voiding Method Toilet Toilet # Voids 1 3 Head exam was generally normal. There was no scleral icterus or corneal arcus. Mucous membranes were moist.Neck was supple and without jugular venous distension, thyromegaly, or carotid bruits. Carotids were easily palpable bilaterally. There was no adenopathy. Lungs are clear to auscultation and is no wheezes or rhonchi early crackles.Cardiac exam revealed the PMI to be normally situated and sized. The rhythm was regular and no extrasystoles were noted during several minutes of auscultation. The first and second heart sounds were normal and physiologic splitting of the second heart sound was noted. There were no murmurs, rubs, clicks, or gallops.Abdominal exam revealed normal bowel sounds. The abdomen was soft, non-tender, and without masses, organomegaly , or appreciable enlargement of the abdominal aorta. Extremities are intact and the patient's surgical wound site over the right knee is dry clean. Pulses in the lower extremities are equal and symmetrical. No cyanosis or clubbing at this point. Results - Laboratory Findings CBC and BMP: 09/26/16 06:46 09/25/16 11:58 Abnormal lab findings: Abnormal Labs 09/24/16 09/25/16 09/26/16 07:11 11:58 06:46 WBC 12.1 H RBC 3.56 L 3.45 L Hgb 10.9 L 10.5 L Hct 32.2 L Neutrophils # 10.0 H Chloride 108 H Total Protein 5.7 L Albumin 3.0 L - Diagnostic Findings Chest x-ray: image reviewed Assessment and Plan Plan: Assessment 1 postoperative hypoxemia, transient which essentially recovered and the patient is currently on room air pulse ox and somewhat between 92-95%. No desaturation with activity. Patient is postop day #3 following a right knee arthroplasty for severe osteoarthritis. Chest x-ray from 09/24/2016 is been essentially within normal limits. Rule out postoperative hypoventilation causing hypoxemia. Rule out postoperative atelectatic changes in lung bases/ microatelectasis contributing to her hypoxemia. In any rate, the patient's oxygenation improved and the patient normalized 2 obesity with some features of obstructive sleep apnea. 3 osteoarthritis status post right knee arthroplasty 4 breast cancer, history of Plan Continue using the incentive spirometer. The patient can be discharged to [facility] for further rehabilitation. Outpatient follow-up regarding possible obstructive sleep apnea.
== END 2016-09-26 18:07 | DRG 470 ==
LOC: 2ORMAIN 11:52 → 3SUR 17:25
PROVIDERS: ADMIT Orthopaedic Surgery; ATTEND Orthopaedic Surgery
PROC: 0SRC0J9 Replacement of Right Knee Joint with Synthetic Substitute, Cemented, Open Approach (ICD-10-PCS; principal; 2016-09-23 15:45)
DX: M17.11 Unilateral primary osteoarthritis, right knee (principal); I10 Essential (primary) hypertension; E66.9 Obesity, unspecified; G47.10 Hypersomnia, unspecified; G47.33 Obstructive sleep apnea (adult) (pediatric); G89.29 Other chronic pain; R09.02 Hypoxemia; Z82.49 Family history of ischemic heart disease and other diseases of the circulatory system; Z82.5 Family history of asthma and other chronic lower respiratory diseases; Z85.3 Personal history of malignant neoplasm of breast; Z90.11 Acquired absence of right breast and nipple; Z88.1 Allergy status to other antibiotic agents; Z79.899 Other long term (current) drug therapy
CPT/HCPCS: 71020; 80053; 85025; 88300

== ENCOUNTER 2017-12-30 14:11 | Observation (INO) | payer BC ==
[2017-12-30] MEDS ORDERED: ASPIRIN 81 MG PO STA (14:51)
[2017-12-30] MEDS ORDERED: NITROGLYCERIN OINT 1 INCH/GM PACKET TOPICAL STA (14:51)
--- NOTE | 2017-12-30 14:54 | ED ---
General Adult HPI - General Chief complaint: Chest Pain Stated complaint: Chest pain Time Seen by Provider: 12/30/17 14:37 Source: patient, RN notes reviewed Mode of arrival: ambulatory Limitations: no limitations - History of Present Illness Initial comments: Patient is a pleasant 62-year-old female presenting to the emergency Department with complaints of chest discomfort. patient was at the clinic earlier today and advised to come to the emergency department. Patient has had symptoms throughout the day. Discomfort has been mild and feels like pressure. Patient does have associated exertional dyspnea. No nausea or diaphoresis. Patient did have a possible syncopal episode yesterday however this was approximately 10 minutes following giving blood. No radiation of discomfort. No history of similar symptoms previously. - Related Data Home Medications Medication Instructions Recorded Confirmed Losartan-Hctz 50-12.5 mg [Hyzaar 1 tab PO HS 09/10/16 12/30/17 50-12.5] Allergies Allergy/AdvReac Type Severity Reaction Status Date / Time cephalexin [From Keflex] Allergy Dyspnea Verified 12/30/17 14:51 erythromycin base Allergy Rash/Hives, Verified 12/30/17 14:51 itching ketorolac [From Toradol] Allergy Dyspnea Verified 12/30/17 14:51 silicone Allergy Itching Verified 12/30/17 14:51 vancomycin Allergy Itching,aneta Verified 12/30/17 14:51 h Review of Systems ROS Statement: Those systems with pertinent positive or pertinent negative responses have been documented in the HPI. ROS Other: All systems not noted in ROS Statement are negative. Constitutional: Denies: fever Eyes: Denies: eye pain ENT: Denies: ear pain Respiratory: Denies: cough Cardiovascular: Reports: chest pain Endocrine: Reports: fatigue Gastrointestinal: Denies: abdominal pain Genitourinary: Denies: dysuria Musculoskeletal: Denies: back pain Skin: Denies: rash Neurological: Denies: weakness Past Medical History Past Medical History: Cancer, Deep Vein Thrombosis (DVT), Hypertension Additional Past Medical History / Comment(s): hx. right-sided breast cancer 2008 History of Any Multi-Drug Resistant Organisms: MRSA Date of last positivie culture/infection: foot MDRO Source:: 2006 Past Surgical History: Breast Surgery, Hysterectomy, Orthopedic Surgery Additional Past Surgical History / Comment(s): right mastectomy 2008, then implant, left breast reduction, implant removed 2015due to ALLERGIC reaction, bilateral bunionectomy and hammertoe repair, arthroscopy right knee Past Anesthesia/Blood Transfusion Reactions: No Reported Reaction Past Psychological History: No Psychological Hx Reported Smoking Status: Never smoker Past Alcohol Use History: Rare Past Drug Use History: None Reported - Past Family History Mother Family Medical History: No Reported History Additional Family Medical History / Comment(s): in her 70s from heart failure with history of COPD. Father Family Medical History: Cancer Additional Family Medical History / Comment(s): father is alive at age 83 with history of CVA at age 25and was smoking 5 packs of cigarettes per day at that time, hypertension. Brother(s) Family Medical History: Diabetes Mellitus, Hypertension Additional Family Medical History / Comment(s): Patient has 5 brothers and 2 have diabetes mellitus and all have hypertension. Sister(s) Family Medical History: Hypertension Additional Family Medical History / Comment(s): Patient has 3 sisters and all have hypertension. Son(s) Family Medical History: No Reported History Additional Family Medical History / Comment(s): Patient has 2 sons and 1 daughter with no major medical problems. General Exam Limitations: no limitations General appearance: alert, in no apparent distress Head exam: Present: atraumatic Eye exam: Present: normal appearance, PERRL ENT exam: Present: normal oropharynx Neck exam: Present: normal inspection Respiratory exam: Present: normal lung sounds bilaterally Cardiovascular Exam: Present: regular rate, normal rhythm Expanded Peripheral pulses: 2+: Radial (R), Radial (L), Dorsalis Pedis (R), Dorsalis Pedis (L) GI/Abdominal exam: Present: soft. Absent: tenderness Extremities exam: Present: normal inspection. Absent: pedal edema, calf tenderness Neurological exam: Present: alert. 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 12/30/17 15:28 Repeat EKG shows normal sinus rhythm 64. DE 162. QRS 82. QT 448. QTC 462. Left axis. Normal QRS. No acute ST change. EKG Findings - EKG Comments: EKG Findings:: Normal sinus rhythm 66. DE 164. QRS 86. QT 420. QTc 440. Left axis. Normal QRS. No acute ST change. Medical Decision Making - Medical Decision Making Patient reevaluated and resting comfortably in bed. Patient updated on results and plan. Case was discussed in detail with Dr. Price, who will admit for Dr. Bledsoe t - Lab Data Result diagrams: 12/30/17 14:45 12/30/17 14:45 Lab Results 12/30/17 12/30/17 12/30/17 Range/Units 14:45 14:45 14:45 WBC 5.7 (3.8-10.6) k/uL RBC 4.05 (3.80-5.40) m/uL Hgb 12.2 (11.4-16.0) gm/dL Hct 35.9 (34.0-46.0) % MCV 88.6 (80.0-100.0) fL MCH 30.3 (25.0-35.0) pg MCHC 34.2 (31.0-37.0) g/dL RDW 13.0 (11.5-15.5) % Plt Count 299 (150-450) k/uL Neutrophils % 44 % Lymphocytes % 43 % Monocytes % 9 % Eosinophils % 1 % Basophils % 1 % Neutrophils # 2.5 (1.3-7.7) k/uL Lymphocytes # 2.4 (1.0-4.8) k/uL Monocytes # 0.5 (0-1.0) k/uL Eosinophils # 0.1 (0-0.7) k/uL Basophils # 0.0 (0-0.2) k/uL PT (9.0-12.0) sec INR (<1.2) APTT (22.0-30.0) sec D-Dimer (<0.60) mg/L FEU Sodium 135 L (137-145) mmol/L Potassium 3.8 (3.5-5.1) mmol/L Chloride 100 (98-107) mmol/L Carbon Dioxide 24 (22-30) mmol/L Anion Gap 11 mmol/L BUN 14 (7-17) mg/dL Creatinine 0.70 (0.52-1.04) mg/dL Est GFR (CKD-EPI)AfAm >90 (>60 ml/min/1.73 sqM) Est GFR (CKD-EPI)NonAf >90 (>60 ml/min/1.73 sqM) Glucose 95 (74-99) mg/dL Calcium 9.5 (8.4-10.2) mg/dL Magnesium 2.0 (1.6-2.3) mg/dL Total Bilirubin 0.4 (0.2-1.3) mg/dL AST 20 (14-36) U/L ALT 29 (9-52) U/L Alkaline Phosphatase 95 (38-126) U/L Total Creatine Kinase 37 (30-135) U/L CK-MB (CK-2) <0.2 (0.0-2.4) ng/mL CK-MB (CK-2) Rel Index Troponin I <0.012 (0.000-0.034) ng/mL Total Protein 7.1 (6.3-8.2) g/dL Albumin 4.2 (3.5-5.0) g/dL 12/30/17 Range/Units 14:45 WBC (3.8-10.6) k/uL RBC (3.80-5.40) m/uL Hgb (11.4-16.0) gm/dL Hct (34.0-46.0) % MCV (80.0-100.0) fL MCH (25.0-35.0) pg MCHC (31.0-37.0) g/dL RDW (11.5-15.5) % Plt Count (150-450) k/uL Neutrophils % % Lymphocytes % % Monocytes % % Eosinophils % % Basophils % % Neutrophils # (1.3-7.7) k/uL Lymphocytes # (1.0-4.8) k/uL Monocytes # (0-1.0) k/uL Eosinophils # (0-0.7) k/uL Basophils # (0-0.2) k/uL PT 9.9 (9.0-12.0) sec INR 1.0 (<1.2) APTT 22.2 (22.0-30.0) sec D-Dimer 0.55 (<0.60) mg/L FEU Sodium (137-145) mmol/L Potassium (3.5-5.1) mmol/L Chloride (98-107) mmol/L Carbon Dioxide (22-30) mmol/L Anion Gap mmol/L BUN (7-17) mg/dL Creatinine (0.52-1.04) mg/dL Est GFR (CKD-EPI)AfAm (>60 ml/min/1.73 sqM) Est GFR (CKD-EPI)NonAf (>60 ml/min/1.73 sqM) Glucose (74-99) mg/dL Calcium (8.4-10.2) mg/dL Magnesium (1.6-2.3) mg/dL Total Bilirubin (0.2-1.3) mg/dL AST (14-36) U/L ALT (9-52) U/L Alkaline Phosphatase (38-126) U/L Total Creatine Kinase (30-135) U/L CK-MB (CK-2) (0.0-2.4) ng/mL CK-MB (CK-2) Rel Index Troponin I (0.000-0.034) ng/mL Total Protein (6.3-8.2) g/dL Albumin (3.5-5.0) g/dL - Radiology Data Radiology results: image reviewed (Chest x-ray shows no acute process) Disposition Clinical Impression: Chest pain Disposition: ADMITTED IP TO THIS HOSP Is patient prescribed a controlled substance at d/c from ED?: No Referrals: Osvaldo Bledsoe MD [Primary Care Provider] - 1-2 days Decision Time: 16:33
[2017-12-30 15:01] LABS: Basophils % (A) 1 %; Eosinophils # (A) 0.1 k/uL (0-0.7); Eosinophils % (A) 1 %; HCT 35.9 % (34.0-46.0); HGB 12.2 gm/dL (11.4-16.0); Lymphocytes # (A) 2.4 k/uL (1.0-4.8); Lymphocytes % (A) 43 %; MCH 30.3 pg (25.0-35.0); MCHC 34.2 g/dL (31.0-37.0); MCV 88.6 fL (80.0-100.0); Monocytes # (A) 0.5 k/uL (0-1.0); Monocytes % (A) 9 %; Neutrophils # (A) 2.5 k/uL (1.3-7.7); Neutrophils % (A) 44 %; Platelet Count 299 k/uL (150-450); RBC 4.05 m/uL (3.80-5.40); WBC 5.7 k/uL (3.8-10.6)
[2017-12-30 15:09] LABS: ALT 29 U/L (9-52); AST 20 U/L (14-36); Albumin 4.2 g/dL (3.5-5.0); Alkaline Phosphatase 95 U/L (38-126); Anion Gap 11 mmol/L; Blood Urea Nitrogen 14 mg/dL (7-17); Calcium 9.5 mg/dL (8.4-10.2); Carbon Dioxide 24 mmol/L (22-30); Chloride 100 mmol/L (98-107); Glucose 95 mg/dL (74-99); Potassium 3.8 mmol/L (3.5-5.1); Sodium 135 mmol/L (137-145); Total Bilirubin 0.4 mg/dL (0.2-1.3); Total Protein 7.1 g/dL (6.3-8.2)
[2017-12-30 15:12] LABS: D-Dimer 0.55 mg/L FEU (<0.60); Prothrombin Time 9.9 sec (9.0-12.0)
[2017-12-30 15:13] LABS: Creatine Kinase 37 U/L (30-135); Partial Thromboplastin Time 22.2 sec (22.0-30.0)
--- NOTE | 2017-12-30 15:24 | XR ---
EXAMINATION TYPE: XR chest 2V DATE OF EXAM: 12/30/2017 COMPARISON: 09/24/2016 HISTORY: 62-year-old female with chest pain TECHNIQUE: PA and lateral views FINDINGS: The cardiomediastinal silhouette, aorta, and pulmonary vasculature are within normal limits. Lungs an d pleural spaces are clear. IMPRESSION: No acute cardiopulmonary process.
[2017-12-30 15:25] LABS: Creatine Kinase MB <0.2 ng/mL (0.0-2.4); Troponin I <0.012 ng/mL (0.000-0.034)
[2017-12-30] MEDS ORDERED: LORazepam 2 MG/ML INJ IV STA (15:32)
[2017-12-30] MEDS ORDERED: NITROGLYCERIN SL TABS 0.4 MG TAB SUBLINGUAL PRN (16:33)
[2017-12-30] MEDS: NITROGLYCERIN OINT 1 INCH/GM PACKET TOPICAL SCH ×2 (20:19→22:54)
[2017-12-30 20:56] LABS: Creatine Kinase 29 U/L (30-135)
[2017-12-30] MEDS ORDERED: LOSARTAN-HCTZ 50-12.5 MG 1 EACH TAB PO SCH (21:00)
[2017-12-30 21:09] LABS: Creatine Kinase MB <0.2 ng/mL (0.0-2.4); Troponin I <0.012 ng/mL (0.000-0.034)
[2017-12-31 03:02] LABS: Cholesterol 152 mg/dL (<200); HDL Cholesterol 46 mg/dL (40-60); LDL Cholesterol,Calculated 77 mg/dL (0-99); Triglycerides 143 mg/dL (<150)
[2017-12-31 03:23] LABS: Creatine Kinase 30 U/L (30-135)
[2017-12-31 03:36] LABS: Creatine Kinase MB <0.2 ng/mL (0.0-2.4); Troponin I <0.012 ng/mL (0.000-0.034)
[2017-12-31] MEDS ORDERED: ASPIRIN 325 MG TAB PO SCH (09:00)
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
[2017-12-31 12:11] VITALS: BP 113/70; PULSE 83; RESP 18; TEMP 97.5
--- NOTE | 2017-12-31 13:00 | P.HPIM ---
History of Present Illness H&P Date: 12/30/17 Chief Complaint: Atypical chest pain, lightheadedness and dizziness, increase indigestion. [address] Bledsoe's patient with past medical history of breast cancer, DVT, hypertension and fibromyalgia who apparently has done a lot of of physical activity 2 days earlier with work in the yard for over 2 hours then ended up going to the [employer] and giving blood developed to have severe lightheadedness and dizziness started having sternal chest pain worsening with mild exertion. Patient woke up in 12/30/2017 continue to have similar symptoms with worsening with exertion. With her symptom not getting up fast ended up coming to the emergency department at [facility] where was seen and evaluated her EKG had slight abnormality. Patient apparently called her PCP Dr. Bledsoe before coming to the ER his office was not open or available patient ended up in instructed to come to demurs department. With her symptom not clearing up and her complain ended up being hospitalized CK with troponin 2 be done patient be seen cardiology and probably be going for stress test. Review of Systems CONSTITUTIONAL: negative. EYES: negative. EARS, NOSE, MOUTH, THROAT and FACE: negative. RESPIRATORY: No SOB cough or wheezes. CARDIOVASCULAR: Positive atypical CP, no Palpitation,PND or Orthopnea. GASTROINTESTINAL: No Abd pain, Nausea or vomiting, no Diarrhea or constipation , No GI Bleed.. GENITOURINARY: Negative for Hematuria,or UTI, no kidney stones. INTEGUMENT/BREAST: Negative. HEMATOLOGIC/LYMPHATIC: Negative for Bleed or purpura. MUSCULOSKELETAL: Negative for Myalgia or arthralgia. NEUROLOGICAL: No LOC, Sz or syncope. BEHAVIORAL/PSYCH: Negative. ENDOCRINE: Negative . Past Medical History Past Medical History: Cancer, Deep Vein Thrombosis (DVT), Fibromyalgia, Hypertension, Osteoarthritis (OA) Additional Past Medical History / Comment(s): hx. right-sided breast cancer 2008 - no iv's or bp's in rt arm, djd History of Any Multi-Drug Resistant Organisms: MRSA Date of last positivie culture/infection: lt foot MDRO Source:: 2006 Past Surgical History: Breast Surgery, Hysterectomy, Orthopedic Surgery Additional Past Surgical History / Comment(s): right mastectomy 2008, then implant, left breast reduction, implant removed 2014due to ALLERGIC reaction, bilateral bunionectomy and hammer toe repair, arthroscopy right knee, total rt knee replacment Past Anesthesia/Blood Transfusion Reactions: No Reported Reaction, Motion Sickness, Postoperative Nausea & Vomiting (PONV) Additional Past Anesthesia/Blood Transfusion Reaction / Comment(s): clausterphobia Smoking Status: Never smoker - Past Family History Mother Family Medical History: No Reported History Additional Family Medical History / Comment(s): in her 70s from heart failure with history of COPD. Father Family Medical History: Cancer Additional Family Medical History / Comment(s): father is alive at age 83 with history of CVA at age 23and was smoking 5 packs of cigarettes per day at that time, hypertension. Brother(s) Family Medical History: Diabetes Mellitus, Hypertension Additional Family Medical History / Comment(s): Patient has 5 brothers and 2 have diabetes mellitus and all have hypertension. Sister(s) Family Medical History: Hypertension Additional Family Medical History / Comment(s): Patient has 3 sisters and all have hypertension. Son(s) Family Medical History: No Reported History Additional Family Medical History / Comment(s): Patient has 2 sons and 1 daughter with no major medical problems. Medications and Allergies Home Medications Medication Instructions Recorded Confirmed Type Losartan-Hctz 50-12.5 mg [Hyzaar 1 tab PO HS 09/10/16 12/30/17 History 50-12.5] Aspirin 325 mg PO DAILY tab 12/31/17 Rx Allergies Allergy/AdvReac Type Severity Reaction Status Date / Time cephalexin [From Keflex] Allergy Dyspnea Verified 12/30/17 14:51 erythromycin base Allergy Rash/Hives, Verified 12/30/17 14:51 itching ketorolac [From Toradol] Allergy Dyspnea Verified 12/30/17 14:51 silicone Allergy Itching Verified 12/30/17 14:51 vancomycin Allergy Itching,aneta Verified 12/30/17 14:51 h Physical Exam Vitals: Vital Signs Temp Pulse Pulse Pulse Resp BP BP 12/30/17 20:00 97.9 F 63 18 98/51 12/30/17 17:58 62 64 18 12/30/17 17:15 97.8 F 64 18 128/75 12/30/17 16:47 97.8 F 64 18 120/69 12/30/17 15:28 98.5 F 67 18 119/69 12/30/17 14:48 64 62 18 130/67 12/30/17 14:20 97.9 F 67 16 125/80 Pulse Ox 12/30/17 20:00 97 12/30/17 17:58 12/30/17 17:15 98 12/30/17 16:47 97 12/30/17 15:28 100 12/30/17 14:48 99 12/30/17 14:20 99 Intake and Output 12/30/17 12/30/17 12/30/17 06:59 14:59 22:59 Intake Total 200 Balance 200 Intake: Oral 200 Other: Voiding Method Toilet Weight 97.069 kg 97.2 kg General Appearance: Alert, cooperative, no distress, appears stated age Neck HEENT supple, no lymphadenopathy, no thyroid enlargement, no carotid bruits Lungs: Clear to auscultation without crackles or wheezes no rhonchi, no deformity Chest Wall: Chest wall normal expansion with deep inspiration no tenderness and no deformity was found on exam, no costochondral pain or discomfort. Heart: Regular rate and rhythm, S1, S2 normal, no murmur, rub or gallop Back Symmetric, no curvature, ROM normal, no CVA tenderness Abdomen: Soft, non-tender, bowel sounds active all four quadrants, no masses , no organomegaly Extremities: Extremities normal, atraumatic, no cyanosis or edema Pulses: >2+ and symmetric Skin: Skin color, texture, turgor normal, no rashes or lesions Neurologic: alert oriented 3 cranial nerves II through XII intact, no motor deficit, no abnormal balance or gait. Results CBC & Chem 7: 12/30/17 14:45 12/30/17 14:45 Labs: Abnormal Lab Results - Last 24 Hours (Table) 12/30/17 12/30/17 Range/Units 14:45 20:26 Sodium 135 L (137-145) mmol/L Total Creatine Kinase 29 L (30-135) U/L Thrombosis Risk Factor Assmnt - Choose All That Apply Any of the Below Risk Factors Present?: Yes Each Factor Represents 1 point: Obesity (BMI >25) Other Risk Factors: Yes Each Risk Factor Represents 2 Points: Age 61-74 years Thrombosis Risk Factor Assessment Total Risk Factor Score: 3 Thrombosis Risk Factor Assessment Level: Moderate Risk Assessment and Plan Plan: 1 atypical chest pain: Not acutely etiology, with recurrence complain patient be hospitalized nitro without heparin drip will be done we'll consult cardiology echocardiogram will be done patient be going for echo stress test if any abnormality with troponin or stress test patient will need to have heart cath otherwise if she stable condition discharge home in 24 hours. 2 presyncope: Most likely vasovagal after blood transfusion and symptom has a resolve no change in blood pressure no sign of orthostatic. 3 hypertension: Has been doing well on losartan HCT continue medication. 4 history of breast cancer: Has been in remission so far doing well. 5 history of DVT: With no recurrent of acute change. 6 GI prophylaxis: Patient will be on Pepcid daily as needed. CODE STATUS: Full code. Admit patient to observation CK with troponin along with cardiology consultation and stress test will be done.
--- NOTE | 2017-12-31 13:01 | P.DS ---
Providers Date of admission: 12/30/17 16:33 Attending physician: Kevin Price Consults: 12/30/17 16:33 Consult Physician Urgent Consulting Provider: Dhaval Guo Consult Reason/Comments: cp Do you want consulting provider notified?: Yes Primary care physician: Osvaldo Bledsoe [facility] Course: Chief Complaint: Atypical chest pain, lightheadedness and dizziness, increase indigestion. [address] Bledsoe's patient with past medical history of breast cancer, DVT, hypertension and fibromyalgia who apparently has done a lot of of physical activity 2 days earlier with work in the yard for over 2 hours then ended up going to the [employer] and giving blood developed to have severe lightheadedness and dizziness started having sternal chest pain worsening with mild exertion. Patient woke up in 12/30/2017 continue to have similar symptoms with worsening with exertion. With her symptom not getting up fast ended up coming to the emergency department at [facility] where was seen and evaluated her EKG had slight abnormality. Patient apparently called her PCP Dr. Bledsoe before coming to the ER his office was not open or available patient ended up in instructed to come to demurs department. With her symptom not clearing up and her complain ended up being hospitalized [facility] with troponin 2 be done patient be seen cardiology and probably be going for stress test. Stress test was negative, patient is feeling much better will be discharged home today. Assessment and Plan Plan: 1 atypical chest pain: Not acutely etiology, with recurrence complain patient be hospitalized nitro without heparin drip will be done we'll consult cardiology echocardiogram will be done patient be going for echo stress test if any abnormality with troponin or stress test patient will need to have heart cath otherwise if she stable condition discharge home in 24 hours. 2 presyncope: Most likely vasovagal after blood transfusion and symptom has a resolve no change in blood pressure no sign of orthostatic. 3 hypertension: Has been doing well on losartan HCT continue medication. 4 history of breast cancer: Has been in remission so far doing well. 5 history of DVT: With no recurrent of acute change. 6 GI prophylaxis: Patient will be on Pepcid daily as needed. She is doing very well she stable to be discharged today 12/31 2017. Plan - Discharge Summary Discharge Rx Participant: Yes New Discharge Prescriptions: New Aspirin 325 mg PO DAILY tab Continue Losartan-Hctz 50-12.5 mg [Hyzaar 50-12.5] 1 tab PO HS Discharge Medication List Losartan-Hctz 50-12.5 mg [Hyzaar 50-12.5] 1 tab PO HS 09/10/16 [History] Aspirin 325 mg PO DAILY tab 12/31/17 [Rx] Follow up Appointment(s)/Referral(s): Yelitza Gray MD [STAFF PHYSICIAN] - 2 Weeks (Office will call patient at home.) Osvaldo Bledsoe MD [Primary Care Provider] - 1-2 days
--- NOTE | 2017-12-31 13:21 | P.STRESS ---
- Stress Test Note Stress Test Results/Findings: Exam Performed: stress echo exercise Exam Date: 12/31/17 Reason for Exam: CPP Height: 5 ft 8 in Weight: 97.069 kg Protocol: STRESS ECHO Stage: STAGE 2 Duration of Exercise: 5:30 Resting Heart Rate: 87 Resting Blood Pressure: 136/63 Maximum Achieved Heart Rate: 145 Maximum Achieved Blood Pressure: 137/61 85% PMHR: 133 100% PMHR: 156 METS: 7.1 Technologist Comment: Stress Test Results/Findings: This is a 62-year-old female with history of chest pain, shortness of breath and also hypertension being evaluated for chest pains. Stress data: Baseline EKG showed sinus rhythm with IN interval and QRS duration. Blood pressure at rest is 136/63 with pulse rate of 87. Patient to walk on the Ran protocol for 5 minutes achieving a maximal heart rate of 134 with a blood pressure 137/61. EKGs taken during and after the x-ray did not reveal any changes to suggest ischemia. Patient did not express any chest pain. Echo data: Baseline echo images showed normal wall motion and thickening. Exercise echo images showed augmentation of wall motion and thickening in all segments. Final impression: #1. Negative stress test #2 negative stress echo.
[2017-12-31] MEDS: NITROGLYCERIN OINT 1 INCH/GM PACKET TOPICAL SCH (13:48)
--- NOTE | 2018-01-01 14:01 | ECHOF ---
Referral Reason: MEASUREMENTS -------- HEIGHT: 162.6 cm WEIGHT: 91.6 kg BP: 109/58 RVIDd: 3.1 cm (< 3.3) IVSd: 1.3 cm (0.6 - 1.1) LVIDd: 3.9 cm (3.9 - 5.3) LVPWd: 1.3 cm (0.6 - 1.1) IVSs: 2.0 cm LVIDs: 1.3 cm LVPWs: 1.6 cm LAESV Index (A-L): 30.11 ml/m Ao Diam: 2.8 cm (2.0 - 3.7) AV Cusp: 1.7 cm (1.5 - 2.6) LA Diam: 4.2 cm (2.7 - 3.8) MV EXCURSION: 11.800 mm (> 18.000) MV EF SLOPE: 78 mm/s (70 - 150) EPSS: 0.3 cm MV E Tomi: 1.11 m/s MV DecT: 229 ms MV A Tomi: 0.83 m/s MV E/A Ratio: 1.33 AR PHT: 236 ms RAP: 5.00 mmHg RVSP: 22.41 mmHg FINDINGS -------- Sinus rhythm. This was a technically good study. The left ventricular size is normal. There is mild concentric left ventricular hypertrophy. Overa ll left ventricular systolic function is normal with, an EF between 55 - 60 %. The right ventricle is normal in size and function. The left atrium is normal in size. The right atrium is normal in size. The aortic valve is trileaflet, and appears structurally normal. No aortic stenosis or regurgitation. There is trace mitral regurgitation. Trace tricuspid regurgitation present. The right ventricular systolic pressure, as measured by Dopp ler, is 22.41mmHg. Pulmonic valve appears structurally normal. The aortic root size is normal. Normal inferior vena cava with normal inspiratory collapse consistent with estimated right atrial pre ssure of 5 mmHg. The pericardium is normal. CONCLUSIONS -------- 1. Sinus rhythm. 2. This was a technically good study. 3. The left ventricular size is normal. 4. There is mild concentric left ventricular hypertrophy. 5. Overall left ventricular systolic function is normal with, an EF between 55 - 60 %. 6. The right ventricle is normal in size and function. 7. The left atrium is normal in size. 8. The right atrium is normal in size. 9. The aortic valve is trileaflet, and appears structurally normal. No aortic stenosis or regurgitati on. 10. There is trace mitral regurgitation. 11. Trace tricuspid regurgitation present. 12. The right ventricular systolic pressure, as measured by Doppler, is 22.41mmHg. 13. Pulmonic valve appears structurally normal. 14. The aortic root size is normal. 15. Normal inferior vena cava with normal inspiratory collapse consistent with estimated right atrial pressure of 5 mmHg. 16. The pericardium is normal. SUPERVISOR [employer]: Holly Nelson RDCS
--- NOTE | 2018-01-04 15:37 | ECHOS ---
Stress Test Results/Findings: Exam Performed: stress echo exercise Exam Date: 12/31/17 Reason for Exam: CPP Height: 5 ft 8 in Weight: 97.069 kg Protocol: STRESS ECHO Stage: STAGE 2 Duration of Exercise: 5:30 Resting Heart Rate: 87 Resting Blood Pressure: 136/63 Maximum Achieved Heart Rate: 145 Maximum Achieved Blood Pressure: 137/61 85% PMHR: 133 100% PMHR: 156 METS: 7.1 Technologist Comment: Stress Test Results/Findings: This is a 62-year-old female with history of chest pain, shortness of breath and also hypertension being evaluated for chest pains. Stress data: Baseline EKG showed sinus rhythm with NV interval and QRS duration. Blood pressure at rest is 136/63 with pulse rate of 87. Patient to walk on the Ran protocol for 5 minutes achieving a maximal heart rate of 134 with a blood pressure 137/61. EKGs taken during and after the x-ray did not reveal any changes to suggest ischemia. Patient did not express any chest pain. Echo data: Baseline echo images showed normal wall motion and thickening. Exercise echo images showed augmentation of wall motion and thickening in all segments. Final impression: #1. Negative stress test #2 negative stress echo. SUMEET
== END 2017-12-31 14:15 | disposition home or self-care (01) ==
LOC: EC 14:11 → 3OBS 16:33
PROVIDERS: ADMIT Internal Medicine Geriatric Medicine; ATTEND Internal Medicine Geriatric Medicine
DX: R07.89 Other chest pain (principal); R55 Syncope and collapse; R42 Dizziness and giddiness; R06.02 Shortness of breath; K30 Functional dyspepsia; I10 Essential (primary) hypertension; R94.31 Abnormal electrocardiogram [ECG] [EKG]; M79.7 Fibromyalgia; Z86.718 Personal history of other venous thrombosis and embolism; Z85.3 Personal history of malignant neoplasm of breast; R06.09 Other forms of dyspnea; Z79.899 Other long term (current) drug therapy; Z88.1 Allergy status to other antibiotic agents; Z88.8 Allergy status to other drugs, medicaments and biological substances; Z91.048 Other nonmedicinal substance allergy status; Z86.14 Personal history of Methicillin resistant Staphylococcus aureus infection; Z82.5 Family history of asthma and other chronic lower respiratory diseases; Z82.49 Family history of ischemic heart disease and other diseases of the circulatory system; Z82.3 Family history of stroke; Z83.3 Family history of diabetes mellitus; M19.90 Unspecified osteoarthritis, unspecified site; Z79.82 Long term (current) use of aspirin; E66.9 Obesity, unspecified; Z68.32 Body mass index [BMI] 32.0-32.9, adult; R11.2 Nausea with vomiting, unspecified; R07.2 Precordial pain
CPT/HCPCS: 99285 ×2; 96374 ×2; 36415; 93005; 93306; 93351; 85379; 80061; 80053; 82550 ×2; 82553 ×2; 83735; 84484 ×2; 85025; 85610; 85730; 71046; G0378 ×2; J2060

== ENCOUNTER 2021-05-11 18:49 | Emergency (ER) | payer BC ==
[2021-05-11] MEDS ORDERED: ONDANSETRON 4 MG/2 ML VIAL IVP STA (20:13)
[2021-05-11] MEDS ORDERED: SODIUM CHLORIDE 0.9% 1,000 ML IV STA (20:13)
[2021-05-11] MEDS ORDERED: HYDROmorphone 1 MG/ML 1 ML SYRINGE IVP STA (20:13)
[2021-05-11 21:19] VITALS: RESP 18; TEMP 98.5
[2021-05-11 21:29] LABS: ALT 31 U/L (4-34); AST 28 U/L (14-36); African American GFR (CKD) >90 (>60 ml/min/1.73 sqM); Albumin 4.3 g/dL (3.5-5.0); Alkaline Phosphatase 114 U/L (38-126); Anion Gap 13 mmol/L; Blood Urea Nitrogen 9 mg/dL (7-17); Calcium 9.8 mg/dL (8.4-10.2); Carbon Dioxide 21 mmol/L (22-30); Chloride 98 mmol/L (98-107); Glucose 106 mg/dL (74-99); Lipase 179 U/L (23-300); Non-African American GFR(CKD) >90 (>60 ml/min/1.73 sqM); Potassium 3.8 mmol/L (3.5-5.1); Sodium 132 mmol/L (137-145); Total Bilirubin 0.8 mg/dL (0.2-1.3); Total Protein 7.7 g/dL (6.3-8.2)
[2021-05-11 21:36] LABS: Appearance,Urine Cloudy (Clear); Bilirubin,Urine Negative (Negative); Blood,Urine Moderate (Negative); Color,Urine Yellow; Glucose,Urine (UA) Negative (Negative); Ketones,Urine Trace (Negative); Leukocyte Esterase,Urine Large (Negative); Mucus,Urine Many /hpf; Nitrite,Urine Negative (Negative); PH, Urine 6.5 (5.0-8.0); Protein,Urine 2+ (Negative); RBC,Urine 48 /hpf (0-5); Specific Gravity,Urine 1.023 (1.001-1.035); Squamous Epithelial Cell,Urine 2 /hpf (0-4); Urobilinogen,Urine <2.0 mg/dL (<2.0); WBC,Urine >182 /hpf (0-5)
--- NOTE | 2021-05-11 21:59 | CT ---
EXAMINATION TYPE: CT abdomen pelvis w con DATE OF EXAM: 05/11/2021 COMPARISON: None HISTORY: abdominal pain and constipation CT DLP: 1440.2 mGycm Automated exposure control for dose reduction was used. CONTRAST: Performed with IV Contrast, patient injected with 100 mL of Isovue 300. Lung bases are clear. There is no pleural effusion. Heart size is normal. There is no pericardial eff usion. Liver spleen stomach pancreas gallbladder appear intact. The bile ducts are not dilated. There is a 1 cm cyst in the inferior right lobe of the liver. There is no adrenal mass. Kidneys show satisfactory contrast opacification. There is no hydronephrosi s. Appendix appears normal. Ureters are not dilated. Bladder distends smoothly. There is no inguinal hernia. There is no free fluid in the pelvis. There are a few sigmoid diverticula. There is no divert iculitis. Delayed images show normal renal excretion. 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 There is no evidence of a pelvic mass. There is no mesenteric edema. There is no ascites or free air. There is no sign of a bowel obstructio n. There is a degenerative first-degree L4-5 spondylolisthesis. There is no lumbar compression fracture. Facet joints are intact. Bony pelvis is intact. Hip joints are intact. IMPRESSION: There are some sigmoid diverticulosis without sign of diverticulitis. No evidence of renal stone or o bstruction. Normal appendix. No evidence of constipation.
[2021-05-11 22:07] LABS: Basophils % (A) 0 %; Eosinophils % (A) 0 %; HCT 37.8 % (34.0-46.0); HGB 12.5 gm/dL (11.4-16.0); Lymphocytes # (A) 1.8 k/uL (1.0-4.8); Lymphocytes % (A) 14 %; MCH 30.8 pg (25.0-35.0); MCHC 33.1 g/dL (31.0-37.0); MCV 92.9 fL (80.0-100.0); Mean Platelet Volume 7.8; Monocytes # (A) 0.8 k/uL (0-1.0); Monocytes % (A) 6 %; Neutrophils # (A) 9.8 k/uL (1.3-7.7); Neutrophils % (A) 78 %; Platelet Count 412 k/uL (150-450); RBC 4.07 m/uL (3.80-5.40); WBC 12.5 k/uL (3.8-10.6)
[2021-05-11] MEDS ORDERED: NITROFURANTOIN MONOHYD/M-CRYST 100 MG CAP PO STA (22:33)
[2021-05-11] MEDS ORDERED: PHENAZOPYRIDINE 200 MG TAB PO STA (22:33)
--- NOTE | 2021-05-11 22:39 | ED ---
Abdominal Pain HPI - General Chief Complaint: Abdominal Pain Stated Complaint: Blood in urine per urgent care Time Seen by Provider: 05/11/21 20:02 Source: patient Mode of arrival: wheelchair Limitations: no limitations - History of Present Illness Initial Comments: 65-year-old female patient presents to the emergency department today for evaluation of lower abdominal pain. Patient states he had knee surgery and then became quite constipated from the pain medication. States she is using MiraLAX and stool softeners and did end up having good bowel movements over the last couple days. States today she developed severe lower abdominal pain went to urgent care was told she had blood in her urine and they were concerned about perforated bowel also instructed her to come in here. She denies any fever or chills. Denies nausea or vomiting. Denies any blood in the stool. Denies any hematuria, dysuria, urinary frequency, urinary urgency. Patient denies any recent rash, cough, shortness of breath, chest pain, back pain, numbness, tingling, dizziness, weakness, headache, visual changes, or any other complaints. - Related Data Home Medications Medication Instructions Recorded Confirmed Losartan-Hctz 50-12.5 mg [Hyzaar 1 tab PO DAILY@1900 09/10/16 05/11/21 50-12.5] Acetaminophen [Tylenol Extra 1,000 mg PO Q6H PRN 05/11/21 05/11/21 Strength] Celecoxib [CeleBREX] 200 mg PO DAILY PRN 05/11/21 05/11/21 Cholecalciferol [Vitamin D3 (25 50 mcg PO DAILY 05/11/21 05/11/21 Mcg = 1000 Iu)] Gabapentin [Neurontin] 100 mg PO DAILY PRN 05/11/21 05/11/21 HYDROcodone/APAP 10-325MG [[place] 1 tab PO Q6HR PRN 05/11/21 05/11/21 10-325] Latanoprost/Pf [Latanoprost 0.005% 1 drop BOTH EYES HS 05/11/21 05/11/21 Eye Drop] [place]-3 Fatty Acids [[place]-3] 1,000 mg PO DAILY 05/11/21 05/11/21 Zinc Gluconate [Zinc] 50 mg PO DAILY 05/11/21 05/11/21 polyethylene glycoL 3350 [Miralax] 17 gm PO DAILY PRN 05/11/21 05/11/21 Previous Rx's Medication Instructions Recorded Nitrofurantoin Monohyd/M-Cryst 100 mg PO Q12HR #14 cap 05/11/21 [Macrobid] Phenazopyridine [Pyridium] 200 mg PO TID #18 tablet 05/11/21 Allergies Allergy/AdvReac Type Severity Reaction Status Date / Time cephalexin [From Keflex] Allergy Dyspnea Verified 05/11/21 21:39 erythromycin base Allergy Rash/Hives, Verified 05/11/21 21:39 itching ketorolac [From Toradol] Allergy Dyspnea Verified 05/11/21 21:39 silicone Allergy Itching Verified 05/11/21 21:39 vancomycin Allergy Itching,aneta Verified 05/11/21 21:39 h Review of Systems ROS Statement: Those systems with pertinent positive or pertinent negative responses have been documented in the HPI. ROS Other: All systems not noted in ROS Statement are negative. Past Medical History Past Medical History: Cancer, Deep Vein Thrombosis (DVT), Fibromyalgia, Hypertension, Osteoarthritis (OA) Additional Past Medical History / Comment(s): hx. right-sided breast cancer 2008- no iv's or bp's in rt arm, djd History of Any Multi-Drug Resistant Organisms: MRSA Date of last positivie culture/infection: lt foot MDRO Source:: 2006 Past Surgical History: Breast Surgery, Hysterectomy, Orthopedic Surgery Additional Past Surgical History / Comment(s): right mastectomy 2008, then implant, left breast reduction, implant removed 2014due to ALLERGIC reaction, bilateral bunionectomy and hammer toe repair, arthroscopy right knee, total rt knee replacment. left knee total replacement. Past Anesthesia/Blood Transfusion Reactions: No Reported Reaction, Motion Sickness, Postoperative Nausea & Vomiting (PONV) Additional Past Anesthesia/Blood Transfusion Reaction / Comment(s): c lausterphobia Past Psychological History: No Psychological Hx Reported Smoking Status: Never smoker Past Alcohol Use History: None Reported Past Drug Use History: None Reported - Past Family History Mother Family Medical History: No Reported History Additional Family Medical History / Comment(s): in her 70s from heart failure with history of COPD. Father Family Medical History: Cancer Additional Family Medical History / Comment(s): father is alive at age 83 with history of CVA at age 23and was smoking 5 packs of cigarettes per day at that time, hypertension. Brother(s) Family Medical History: Diabetes Mellitus, Hypertension Additional Family Medical History / Comment(s): Patient has 5 brothers and 2 have diabetes mellitus and all have hypertension. Sister(s) Family Medical History: Hypertension Additional Family Medical History / Comment(s): Patient has 3 sisters and all have hypertension. Son(s) Family Medical History: No Reported History Additional Family Medical History / Comment(s): Patient has 2 sons and 1 daughter with no major medical problems. General Exam Limitations: no limitations General appearance: alert, in no apparent distress, other (This is a well- developed, well-nourished adult female patient in no acute distress.) ENT exam: Present: normal exam, normal oropharynx, mucous membranes moist Respiratory exam: Present: normal lung sounds bilaterally. Absent: respiratory distress, wheezes, rales, rhonchi, stridor Cardiovascular Exam: Present: normal rhythm, tachycardia, normal heart sounds. Absent: systolic murmur, diastolic murmur, rubs, gallop, clicks GI/Abdominal exam: Present: soft, tenderness (Lower abdominal), normal bowel sounds. Absent: distended, guarding, rebound, rigid Neurological exam: Present: alert, oriented X3, CN II-XII intact Psychiatric exam: Present: normal affect, normal mood Skin exam: Present: warm, dry, intact, normal color. Absent: rash Course Vital Signs 05/11/21 05/11/21 05/11/21 19:56 20:45 22:05 Temperature 100.2 F H 98.5 F Pulse Rate 105 H 81 73 Respiratory 20 18 18 Rate Blood Pressure 125/79 129/82 136/67 O2 Sat by Pulse 98 99 99 Oximetry Medical Decision Making - Medical Decision Making 65-year-old female patient presents to the emergency department today for evaluation of lower abdominal pain after having constipation for a week and then started to have bowel movements. Physical examination did reveal lower abdominal tenderness. Labs reviewed and did reveal white blood cell count at 12.5. Sodium 132. Lactic acid 1.7. Urinalysis does show evidence for UTI. CT abdomen and pelvis is negative. She'll be treated with Macrobid and Pyridium. She was given IV fluids and pain medication here. Upon reevaluation she is resting comfortably in bed. She does feel comfortable being discharged at this time. Prescription for some to her pharmacy. Return parameters were discussed in detail. She verbalizes understanding and agrees with this plan. Case discussed with my attending Dr. Nowak. - Lab Data Result diagrams: 05/11/21 21:40 05/11/21 20:48 Lab Results 05/11/21 05/11/21 05/11/21 Range/Units 20:48 20:48 20:48 WBC (3.8-10.6) k/uL RBC (3.80-5.40) m/uL Hgb (11.4-16.0) gm/dL Hct (34.0-46.0) % MCV (80.0-100.0) fL MCH (25.0-35.0) pg MCHC (31.0-37.0) g/dL RDW (11.5-15.5) % Plt Count (150-450) k/uL MPV Neutrophils % % Lymphocytes % % Monocytes % % Eosinophils % % Basophils % % Neutrophils # (1.3-7.7) k/uL Lymphocytes # (1.0-4.8) k/uL Monocytes # (0-1.0) k/uL Eosinophils # (0-0.7) k/uL Basophils # (0-0.2) k/uL Sodium 132 L (137-145) mmol/L Potassium 3.8 (3.5-5.1) mmol/L Chloride 98 (98-107) mmol/L Carbon Dioxide 21 L (22-30) mmol/L Anion Gap 13 mmol/L BUN 9 (7-17) mg/dL Creatinine 0.58 (0.52-1.04) mg/dL Est GFR (CKD-EPI)AfAm >90 (>60 ml/min/1.73 sqM) Est GFR (CKD-EPI)NonAf >90 (>60 ml/min/1.73 sqM) Glucose 106 H (74-99) mg/dL Plasma Lactic Acid Ge[place] 1.7 (0.7-2.0) mmol/L Calcium 9.8 (8.4-10.2) mg/dL Total Bilirubin 0.8 (0.2-1.3) mg/dL AST 28 (14-36) U/L ALT 31 (4-34) U/L Alkaline Phosphatase 114 (38-126) U/L Total Protein 7.7 (6.3-8.2) g/dL Albumin 4.3 (3.5-5.0) g/dL Lipase 179 (23-300) U/L Urine Color Yellow Urine Appearance Cloudy H (Clear) Urine pH 6.5 (5.0-8.0) Ur Specific [place] 1.023 (1.001-1.035) Urine Protein 2+ H (Negative) Urine Glucose (UA) Negative (Negative) Urine Ketones Trace H (Negative) Urine Blood Moderate H (Negative) Urine Nitrite Negative (Negative) Urine Bilirubin Negative (Negative) Urine Urobilinogen <2.0 (<2.0) mg/dL Ur Leukocyte Esterase Large H (Negative) Urine RBC 48 H (0-5) /hpf Urine WBC >182 H (0-5) /hpf Ur Squamous Epith Cells 2 (0-4) /hpf Urine Mucus Many H (None) /hpf 05/11/ Range/Units 21:40 WBC 12.5 H (3.8-10.6) k/uL RBC 4.07 (3.80-5.40) m/uL Hgb 12.5 (11.4-16.0) gm/dL Hct 37.8 (34.0-46.0) % MCV 92.9 (80.0-100.0) fL MCH 30.8 (25.0-35.0) pg MCHC 33.1 (31.0-37.0) g/dL RDW 13.0 (11.5-15.5) % Plt Count 412 (150-450) k/uL MPV 7.8 Neutrophils % 78 % Lymphocytes % 14 % Monocytes % 6 % Eosinophils % 0 % Basophils % 0 % Neutrophils # 9.8 H (1.3-7.7) k/uL Lymphocytes # 1.8 (1.0-4.8) k/uL Monocytes # 0.8 (0-1.0) k/uL Eosinophils # 0.0 (0-0.7) k/uL Basophils # 0.0 (0-0.2) k/uL Sodium (137-145) mmol/L Potassium (3.5-5.1) mmol/L Chloride (98-107) mmol/L Carbon Dioxide (22-30) mmol/L Anion Gap mmol/L BUN (7-17) mg/dL Creatinine (0.52-1.04) mg/dL Est GFR (CKD-EPI)AfAm (>60 ml/min/1.73 sqM) Est GFR (CKD-EPI)NonAf (>60 ml/min/1.73 sqM) Glucose (74-99) mg/dL Plasma Lactic Acid [place] (0.7-2.0) mmol/L Calcium (8.4-10.2) mg/dL Total Bilirubin (0.2-1.3) mg/dL AST (14-36) U/L ALT (4-34) U/L Alkaline Phosphatase (38-126) U/L Total Protein (6.3-8.2) g/dL Albumin (3.5-5.0) g/dL Lipase (23-300) U/L Urine Color Urine Appearance (Clear) Urine pH (5.0-8.0) Ur Specific [place] (1.001-1.035) Urine Protein (Negative) Urine Glucose (UA) (Negative) Urine Ketones (Negative) Urine Blood (Negative) Urine Nitrite (Negative) Urine Bilirubin (Negative) Urine Urobilinogen (<2.0) mg/dL Ur Leukocyte Esterase (Negative) Urine RBC (0-5) /hpf Urine WBC (0-5) /hpf Ur Squamous Epith Cells (0-4) /hpf Urine Mucus (None) /hpf - Radiology Data Radiology results: report reviewed, image reviewed CT abdomen and pelvis with contrast was obtained. Report was reviewed in its entirety. Impression by Dr. Barnes shows some sigmoid diverticulosis without signs of diverticulitis. No evidence of renal stone or obstruction. Normal appendix. No evidence for constipation. Disposition Clinical Impression: Urinary tract infection Disposition: HOME SELF-CARE Condition: Good Instructions (If sedation given, give patient instructions): Urinary Tract Infection in Women (ED) Additional Instructions: Increase fluids. Follow-up with your primary care physician for recheck in 1-2 days. Complete antibiotic prescription in full. Return for any new, worsening, or concerning symptoms. Prescriptions: Nitrofurantoin Monohyd/M-Cryst [Macrobid] 100 mg PO Q12HR #14 cap Phenazopyridine [Pyridium] 200 mg PO TID #18 tablet Is patient prescribed a controlled substance at d/c from ED?: No Referrals: Kevin Bledsoe MD [Primary Care Provider] - 1-2 days Time of Disposition: 22:39
[2021-05-11 23:30] VITALS: BP 139/67; PULSE 78
== END 2021-05-11 23:30 | disposition home or self-care (01) ==
LOC: EC 18:49
DX: N39.0 Urinary tract infection, site not specified (principal); I10 Essential (primary) hypertension; Z88.1 Allergy status to other antibiotic agents; Z88.5 Allergy status to narcotic agent; Z88.6 Allergy status to analgesic agent; Z88.8 Allergy status to other drugs, medicaments and biological substances; Z79.899 Other long term (current) drug therapy
CPT/HCPCS: 36415; 80053; 83605; 83690; 85025; 81001; 87040; 87086; 74177; 99284; 96374; 96375; 96361; J2405; J1170; Q9967